=== PATIENT | female | born 1945 | race Caucasian/White ===

== ENCOUNTER 2018-08-04 19:52 | Emergency (ER) | payer OTHER, BC ==
[2018-08-04 20:01] VITALS: BP 160/85; PULSE 90; TEMP 98.6; BMI 34.4
[2018-08-04] MEDS ORDERED: CLINDAMYCIN 600MG PREMIX IVPB 600 MG/50 ML BAG IVPB ONE (21:32)
[2018-08-04] MEDS ORDERED: CLINDAMYCIN PHOSPHATE 600 MG/4 ML VIAL ONE (21:40)
[2018-08-04] MEDS ORDERED: SULFAMETHOXAZOLE/TRIMETHOPRIM 800MG/160MG D.S. TABLET PO ONE (22:17)
[2018-08-04] MEDS ORDERED: SULFAMETHOXAZOLE/TRIMETHOPRIM 800MG/160MG D.S. TABLET ONE ×2 (22:18→23:03)
[2018-08-04] MEDS ORDERED: metroNIDAZOLE 250 MG TABLET ONE (23:04)
--- NOTE | 2018-08-05 04:43 | PDOC ---
Documentation entered by Forest Jasmine SCRIBE, acting as scribe for Taylor Thomas MD. Taylor Thomas MD: This documentation has been prepared by the Kenroy torres Daniel, SCRIBE, under my direction and personally reviewed by me in its entirety. I confirm that the documentation accurately reflects all work, treatment, procedures, and medical decision making performed by me. History of Present Illness - General Chief Complaint: Bite Stated Complaint: RH CAT BITE Time Seen by Provider: 08/04/18 19:53 History Source: Patient Exam Limitations: No Limitations - History of Present Illness Initial Comments: 08/04/18 21:32 The patient is a 73 year old female with a past medical history of sjogrens syndrome, lymphoma (s/p chemotherapy), and HLD here today for evaluation of a cat bite. The patient reports that a [employer] dog was chasing her cats around 2 PM and she attempted to pull the two apart when her cat bit her right middle finger. She noticed that her right middle finger began to swell and became warm shortly after the incident. She also notes pain on flexion and extension of her right middle finger. Patient denies headache, lightheadedness. Denies fever, chills. Denies chest pain, shortness of breath. Denies nausea, vomiting, diarrhea, abdominal pain. Allergies: penicillins, tetracycline( pt unaware of details of allergic reaction to either) lactose, oak PCP: Mackenzie Raygoza Past History - Past Medical History Allergies/Adverse Reactions: Allergies Allergy/AdvReac Type Severity Reaction Status Date / Time Penicillins Allergy Unknown UNKNOWN Verified 09/04/14 11:00 Tetracyclines Allergy Unknown UNKNOWN Verified 09/04/14 11:00 lactose Allergy FLATULENCE, Verified 09/08/14 07:39 DIARRHEA oak Allergy Uncoded 09/04/14 11:00 Home Medications: Ambulatory Orders Diphenoxylate HCl/Atrop Sulf [Lomotil Tablet] 1 each PO DAILY PRN 10/16/13 Folic Acid/Multivit-Min/Lutein [Centrum Silver Chewable Tablet] 1 each PO DAILY 10/16/13 Olopatadine HCl [Patanol] 5 ml OU BID PRN 10/16/13 Tramadol HCl [Ultram] 50 mg PO DAILY 10/16/13 Methylprednisolone [Medrol -] 2 mg PO DAILY 09/04/14 Lactobacillus Acidophilus [Probiotic] 1 each PO DAILY 09/26/14 Sulfamethoxazole/Trimethoprim [Bactrim Ds Tablet] 1 each PO BID #14 tablet 08/04 metroNIDAZOLE [Flagyl -] 500 mg PO TID #21 tablet 08/04/18 Anemia: No Asthma: No 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,LATER; UPPER LEFT THIGH AND LEFT EYELID) Cardiac Disorders: No CVA: No COPD: No CHF: No Dementia: No Diabetes: No GI Disorders: Yes (Diverticulitis) Disorders: No HTN: No Hypercholesterolemia: No Liver Disease: No Seizures: No Thyroid Disease: No - Surgical History Abdominal Surgery: Yes Appendectomy: Yes (1974) Cardiac Surgery: No Cholecystectomy: Yes (1974) Lung Surgery: No Neurologic Surgery: No Orthopedic Surgery: Yes (BACK SURGERY AND HAND SURGERY) - Suicide/Smoking/Psychosocial Hx Smoking History: Never smoked Have you smoked in the past 12 months: No Hx Alcohol Use: Yes Drug/Substance Use Hx: No Substance Use Type: Alcohol Hx Substance Use Treatment: No Review of Systems - Review of Systems Able to Perform ROS?: Yes Comments:: 08/04/18 21:32 All systems are reviewed and negative except as noted in the HPI *Physical Exam - Physical Exam Comments: 08/04/18 21:33 GENERAL: Awake, alert, and fully oriented, in no acute distress HEAD: No signs of trauma EYES: PERRLA, EOMI, sclera anicteric, conjunctiva clear ENT: Auricles normal inspection, hearing grossly normal, nares patent, oropharynx clear without exudates. Moist mucosa NECK: Normal ROM, supple, no lymphadenopathy, JVD, or masses LUNGS: Breath sounds equal, clear to auscultation bilaterally. No wheezes, and no crackles HEART: Regular rate and rhythm, normal S1 and S2, no murmurs, rubs or gallops ABDOMEN: Soft, nontender, normoactive bowel sounds. No guarding, no rebound. No masses EXTREMITIES: +non bleeding 2 mm wound to the mid dorsum of the right proximal phalanx of the third finger. +non bleeding 2 mm wound to the mid ulnar aspect of the right proximal phalanx of the third finger.+moderate edema. +moderate tenderness. +faint ecchymosis from the PIP joint to the MCP joint of the dorsum right third finger. +mild erythema and mild tenderness of palmar aspect of base of right third finger. +pain with passive and active flexion and extension of right third finger. No edema or lymphatic streaking of the proximal hand. No clubbing or cyanosis. No cords NEUROLOGICAL: Cranial nerves II through XII grossly intact. Normal speech, normal gait SKIN: Warm, Dry, normal turgor, no rashes or lesions noted. Medical Decision Making - Medical Decision Making This 73-year-old woman with a history of Sjogren syndrome, on daily steroid regimen (2 mg Medrol daily) presents with cat bite (own cat) approximately 6 hours prior to presentation. She has had swelling and pain in the area for the last few hours. Physical exam is noted consistent with early cellulitis. The patient is at risk for progressive infectious process secondary to her chronic steroid use. She has known ALLERGIES to penicillin and tetracycline although she does not recall specific ALLERGIC reactions to these antibiotics The patient received 600 mg of clindamycin IV. She will be discharged with prescriptions for Bactrim DS twice a day for one week as well as Flagyl 500 mg 3 times a day for one week Because the patient does not have signs of systemic illness and clearcut tenosynovitis is not present, she is a candidate for outpatient therapy. However, the patient has been strongly advised to return immediately if she develops fever or worsening pain/swelling/redness (especially any lymphangitic streaking). She understands that she would require intravenous antibiotics and admission. The patient should follow-up with Dr. Raygoza on August 06 *DC/Admit/Observation/Transfer Diagnosis at time of Disposition: Cellulitis of right hand - Discharge Dispostion Disposition: HOME Condition at time of disposition: Stable - Prescriptions Prescriptions: metroNIDAZOLE [Flagyl -] 500 mg PO TID #21 tablet Sulfamethoxazole/Trimethoprim [Bactrim Ds Tablet] 1 each PO BID #14 tablet - Referrals Referrals: Mackenzie Raygoza MD [Primary Care Provider] - 2 Days - Patient Instructions Printed Discharge Instructions: Cellulitis, DI for Animal Bites Additional Instructions: Bactrim DS twice a day for 1 week Flagyl 500mg 3 X a day for 1 week Tylenol as needed for mild pain; Ultram as needed for moderate to severe pain drink plenty of water followup with Dr Raygoza on MondayAugust 06 return to ER if you have worsening pain/swelling or red streaking/fever/chills - Post Discharge Activity
--- NOTE | 2018-08-05 15:57 | PDOC ---
Patient Follow-up (Call Back) - Post ED Follow - Up Condition at time of discharge: Stable Disposition at time of original discharge: HOME - Disposition Additional Instructions/Notes: Patient presents to the ER stating that she is unable to roll picker her prescription from last night because her pharmacy, [facility], is closed on Monday. She requests for medication besides to [facility]. Chart was reviewed, antibiotics for cat bite as prescribed by Dr. Thomas were redirected to [facility] as requested.
== END 2018-08-04 23:13 | disposition home or self-care (01) ==
LOC: FER 19:52
DX: L03.113 Cellulitis of right upper limb (principal); M35.00 Sjogren syndrome, unspecified; C85.90 Non-Hodgkin lymphoma, unspecified, unspecified site
CPT/HCPCS: 99281-25

== ENCOUNTER 2022-11-14 11:03 | Day surgery (SDC) | payer OTHER, BC ==
[2022-11-10 10:19] VITALS: BMI 27.4
[2022-11-14 11:34] VITALS: RESP 16
[2022-11-14 13:47] VITALS: TEMP 97
[2022-11-14 13:55] VITALS: BP 121/68; PULSE 73
== END 2022-11-14 14:16 | disposition home or self-care (01) ==
LOC: FASU-ENDO 11:03
PROVIDERS: ATTEND Internal Medicine Gastroenterology
PROC: 0DBK8ZX Excision of Ascending Colon, Via Natural or Artificial Opening Endoscopic, Diagnostic (ICD-10-PCS; principal; 2022-11-14 13:07)
DX: Z12.11 Encounter for screening for malignant neoplasm of colon (principal); D12.2 Benign neoplasm of ascending colon; K57.30 Diverticulosis of large intestine without perforation or abscess without bleeding; Z86.010 Personal history of colon polyps
CPT/HCPCS: 88305-TC

== ENCOUNTER 2023-05-23 17:44 | Emergency (ER) | payer OTHER, BC ==
[2023-05-23 18:48] VITALS: BP 179/92; PULSE 83; RESP 16; TEMP 98; BMI 25.7
[2023-05-23] MEDS ORDERED: DIPHTH,PERTUSS(ACELL),TET 0.5 ML DISP.SYRIN IM ONE (20:23)
[2023-05-23] MEDS ORDERED: CLINDAMYCIN HCL 150 MG CAPSULE (FP) ONE (20:23)
[2023-05-23] MEDS: DIPHTH,PERTUSS(ACELL),TET 0.5 ML DISP.SYRIN IM ONE (20:27)
[2023-05-23] MEDS: CLINDAMYCIN HCL 300 MG CAPSULE PO ONE (20:28)
== END 2023-05-23 20:35 | disposition home or self-care (01) ==
LOC: FER 17:44
PROC: 3E0234Z Introduction of Serum, Toxoid and Vaccine into Muscle, Percutaneous Approach (ICD-10-PCS; principal; 2023-05-23)
DX: S61.250A Open bite of right index finger without damage to nail, initial encounter (principal); L03.011 Cellulitis of right finger; W55.01XA Bitten by cat, initial encounter
CPT/HCPCS: 90471; 90715; 99283-25